=== PATIENT | female | born 1990 | race Caucasian/White ===

== ENCOUNTER → 2024-12-05 10:28 | Outpatient (REF) | payer OTHER, SELFPAY ==
[2024-12-07 20:41] LABS: Quantiferon Mitogen minus NIL 9.95 IU/mL; Quantiferon NIL 0.05 IU/mL; Quantiferon TB Gold Plus Negative (Negative)
== END ==
LOC: OHS 10:28
PROVIDERS: ATTENDING PHYSICIAN Nurse Practitioner Family
DX: Z23 Encounter for immunization (principal)
CPT/HCPCS: 36415; 86480